=== PATIENT | female | born 1980 | race Caucasian/White ===

== ENCOUNTER 2022-04-19 01:29 | Emergency (ER) | payer BC | END 2022-04-19 04:25 | disposition home or self-care (01) | LOC: ERS 01:29 | DX: S90.212A Contusion of left great toe with damage to nail, initial encounter (principal); E03.9 Hypothyroidism, unspecified; F17.210 Nicotine dependence, cigarettes, uncomplicated; Z79.899 Other long term (current) drug therapy; W23.0XXA Caught, crushed, jammed, or pinched between moving objects, initial encounter ==